=== PATIENT | female | born 1985 | race Caucasian/White ===

== ENCOUNTER 2016-09-09 07:50 | Inpatient (IN) | payer BC ==
[~2016-09-09] VITALS: Ht 165.1 cm; Wt 91.4 kg
[~2016-09-09 07:50] MED LIST: PRENTAB26 PO
[2016-09-09] MEDS ORDERED: LACTATED RINGER'S 1000ML 1,000 ML IV PRN (07:54)
[2016-09-09] MEDS ORDERED: LACTATED RINGER'S 1000ML 500 ML IV PRN ×2 (07:57→14:59)
[2016-09-09] MEDS ORDERED: OXYTOCIN 30 UNITS/500ML NSS IV PRN ×2 (08:00→18:45)
[2016-09-09 08:36] VITALS: Ht 165.1 cm; Wt 91.4 kg
[2016-09-09 08:39] LABS: HEMATOCRIT 35.7 % (37-47); MEAN CELL VOLUME 81.9 fL (80-100); MEAN CORPUSCULAR HEMOGLOBIN 26.4 pg (25-34); MEAN CORPUSCULAR HGB CONC 32.2 g/dl (32-36); MEAN PLATELET VOLUME 11.1 fL (7.4-10.4); PLATELET COUNT 164 K/uL (130-400); RED BLOOD COUNT 4.36 M/uL (4.2-5.4); WHITE BLOOD COUNT 6.41 K/uL (4.8-10.8)
[2016-09-09] MEDS: LACTATED RINGER'S 1000ML 1,000 ML IV SCH ×2 (08:56→14:21)
[2016-09-09] MEDS ORDERED: BUPIVACAINE 0.25% 30 ML VIAL ONE (13:56)
[2016-09-09] MEDS ORDERED: FENTANYL 2MCG/ML ROPIV 1.25MG/ML 100ML BAG EPI ONE (13:56)
[2016-09-09] MEDS ORDERED: EpHEDrine SULFATE INJ 50 MG/ML AMP ONE (13:56)
[2016-09-09] MEDS: FENTANYL CITRATE INJ 50 MCG/1 ML 2 ML VIAL ONE ×2 (14:20→15:04)
[2016-09-09] MEDS ORDERED: NALOXONE HCL INJ 1 MG in SODIUM CHLORIDE 0.9% 1000ML 1,000 ML IV PRN (14:59)
[2016-09-09] MEDS ORDERED: FENTANYL 2MCG/ML ROPIV 1.25MG/ML 100ML BAG EPI PRN (15:00)
[2016-09-09] MEDS ORDERED: ONDANSETRON INJ 2 MG/ML 2 ML VIAL IV PRN (15:00)
[2016-09-09] MEDS ORDERED: EpHEDrine SULFATE INJ 50 MG/ML AMP IV PRN (15:00)
[2016-09-09] MEDS ORDERED: NALOXONE HCL INJ 0.4 MG/1 ML VIAL/CARP IV PRN (15:00)
[2016-09-09] MEDS ORDERED: DiphenhydrAMINE HCL 50 MG/ML VIAL IV PRN (15:00)
[2016-09-09] MEDS ORDERED: NALBUPHINE HCL INJ 10 MG/ML AMP IV PRN (15:00)
[2016-09-09] MEDS ORDERED: HYDROCORTISONE ACETATE 25 MG SUPP PR PRN (18:45)
[2016-09-09] MEDS ORDERED: OXYCODONE/ACETAMINOPHEN 5-325 TAB PO PRN (18:45)
[2016-09-09] MEDS ORDERED: LANOLIN OINT EXT PRN ×2 (18:45)
[2016-09-09] MEDS ORDERED: BENZOCAINE 20% AER SPR 82.5 GM CAN EXT PRN (18:45)
[2016-09-09] MEDS ORDERED: SUPERCREAM 0.870 % 15GM JAR EXT PRN (18:45)
[2016-09-09] MEDS ORDERED: MEASLES, MUMPS & RUBELLA VIRUS VIAL SQ. ONE (18:45)
[2016-09-09] MEDS ORDERED: ACETAMINOPHEN 325 MG TAB PO PRN (18:45)
[2016-09-09] MEDS ORDERED: DIPHTHERIA/TETANUS/PERTUSSIS 0.5 ML SYR/VIAL IM. ONE (18:45)
--- NOTE | 2016-09-09 18:55 | Vaginal Delivery Summary ---
Vaginal Delivery Summary Patient was found to be fully dilated and desires to push. She pushed for about 15min and delivered the head and then shoulders with minimal traction at 1809 pm. The baby was handed off to the mother. The cord was clampedx2 and cut at 1 minute. The vagina and perineum were checked and found to have 2nd degree perineal laceration. Her perineum was very short, the distance between the posterior fourchette and anal opening was only 1 cm. Rectal exam was done and noted good sphincter tone. The gloves were changes. The external sphincter muscles were reinforced with figure of 8 sutures with 2/ 0 vicryl. The rectal exam was repeated and found good sphincter tone and no sutures were felt. The gloves were changed. The vaginal mucosa was repaired with 2/0 vicryl and skin on subcuticular fashion. The dyan was delivered spontaneously as intact and complete at 1822 pm. The uterus was explored and found to be empty. EBL was 200 ml. The fundus was firm The baby was a viable female , Apgars 9/9, the weight is pending The mother and the baby tolerated the procedure well. The sponge, instrument and needle count was correct. No complications happened and I was present during whole procedure.
--- NOTE | 2016-09-09 19:33 | Anesthesia Procedure Note ---
Anesthesia Epidural Removal Nt Date & Time Sep 09, 2016 at 19:33 Vital Signs Pain Intensity: 0.0 Notes Mental Status: alert / awake / arousable, participated in evaluation Nausea / Vomiting: adequately controlled Pain: adequately controlled Airway Patency, RR, SpO2: stable & adequate BP & HR: stable & adequate Hydration State: stable & adequate Neuraxial Anesthesia: was administered Anesthetic Complications: no major complications apparent, pt satisfied with anesthetic care Epidural: removed without complications, with tip intact
[2016-09-09 21:15] VITALS: BP 128/82; PULSE 84; TEMP 38.3; O2SAT 100
[2016-09-09] MEDS: DOCUSATE SODIUM 100 MG CAP PO SCH (21:30)
[2016-09-09] MEDS ORDERED: LIDOCAINE HCL 2% JELLY 30 ML TUBE EXT ONE (21:54)
[2016-09-09] MEDS ORDERED: BISACODYL 5 MG TABEC PO SCH (22:00)
[2016-09-09 22:12] LABS: BASO % 0.1 %; BASO ABS # 0.01 K/uL (0-0.2); COMPLETE YES; EOS % 0.2 %; HEMATOCRIT 31.8 % (37-47); IG% 0.3 %; LYMPH % 14.9 %; LYMPH ABS # 1.68 K/uL (1.2-3.4); MEAN CELL VOLUME 80.9 fL (80-100); MEAN CORPUSCULAR HEMOGLOBIN 26.7 pg (25-34); MEAN PLATELET VOLUME 10.5 fL (7.4-10.4); MONO % 7.5 %; PLATELET COUNT 156 K/uL (130-400); RED BLOOD COUNT 3.93 M/uL (4.2-5.4); WHITE BLOOD COUNT 11.29 K/uL (4.8-10.8)
[2016-09-09 23:35] VITALS: BP 118/77; PULSE 87; TEMP 37.2
[2016-09-09 23:47] LABS: URINE APPEARANCE CLEAR (CLEAR); URINE BILIRUBIN NEG (NEG); URINE COLOR YELLOW; URINE NITRITE NEG (NEG); URINE PH 6.5 (4.5-7.5); URINE SPECIFIC GRAVITY 1.008 (1.000-1.030); UROBILINOGEN NEG (NEG); ZZURINE CULT IF INDIC CATH NO
[2016-09-09 23:52] LABS: MANUAL MICROSCOPIC REQUIRED? NO; REVIEW REQ? NO
[2016-09-10 03:45] VITALS: BP 115/79; PULSE 64; TEMP 37.1
[2016-09-10] MEDS: IBUPROFEN 600 MG TAB PO PRN ×4 (05:18→21:27)
[2016-09-10 07:42] LABS: HEMATOCRIT 32.7 % (37-47)
[2016-09-10 08:01] VITALS: BP 118/77; PULSE 64; TEMP 36.7
[2016-09-10] MEDS: PRENATAL VITAMIN TAB PO SCH (08:23)
[2016-09-10] MEDS: FERROUS SULFATE 325 MG TAB PO SCH (08:23)
[2016-09-10] MEDS: DOCUSATE SODIUM 100 MG CAP PO SCH ×2 (08:23→19:57)
--- NOTE | 2016-09-10 08:42 | OB/GYN Progress Note ---
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 Subjective conversation w/ patient, physical exam Ambulation: ambulating normally Voiding: marcelino catheter in place Passing Gas: Yes Diet Tolerance: Regular Diet Lochia: Small Feeding Type: Breast Feeding Objective Vital Signs Date Time Temp Pulse Resp B/P (MAP) Pulse Ox O2 Delivery O2 Flow Rate FiO2 09/10/16 08:01 36.7 64 18 118/77 (91) Room Air 09/10/16 03:45 37.1 64 18 115/79 (91) Room Air 09/09/16 23:35 37.2 87 20 118/77 (91) Room Air 09/09/16 23:35 Room Air 09/09/16 21:15 38.3 84 18 128/82 (97) 100 Room Air 09/09/16 21:15 100 Room Air Physical Exam General Appearance: WELL-APPEARING, NO APPARENT DISTRESS Abdomen: non tender, soft Fundus: Firm Extremities: non-tender, normal inspection, no pedal edema Laboratory Results Last 24 Hours Test 09/09/16 22:05 09/09/16 22:45 09/10/16 06:57 White Blood Count 11.29 K/uL Red Blood Count 3.93 M/uL Hemoglobin 10.5 g/dL 10.7 g/dL Hematocrit 31.8 % 32.7 % Mean Corpuscular Volume 80.9 fL Mean Corpuscular Hemoglobin 26.7 pg Mean Corpuscular Hemoglobin Concent 33.0 g/dl Platelet Count 156 K/uL Mean Platelet Volume 10.5 fL Neutrophils (%) (Auto) 77.0 % Lymphocytes (%) (Auto) 14.9 % Monocytes (%) (Auto) 7.5 % Eosinophils (%) (Auto) 0.2 % Basophils (%) (Auto) 0.1 % Neutrophils # (Auto) 8.70 K/uL Lymphocytes # (Auto) 1.68 K/uL Monocytes # (Auto) 0.85 K/uL Eosinophils # (Auto) 0.02 K/uL Basophils # (Auto) 0.01 K/uL RDW Standard Deviation 41.1 fL RDW Coefficient of Variation 13.8 % Immature Granulocyte % (Auto) 0.3 % Immature Granulocyte # (Auto) 0.03 K/uL Urine Color YELLOW Urine Appearance CLEAR Urine pH 6.5 Urine Specific [place] 1.008 Urine Protein NEG Urine Glucose (UA) NEG Urine Ketones 1+ Urine Occult Blood NEG Urine Nitrite NEG Urine Bilirubin NEG Urine Urobilinogen NEG Urine Leukocyte Esterase NEG Assessment and Plan Post- Day Number: 1 Continue Routine Care: d/c Marcelino at noon tent d/c in AM
[2016-09-10 12:00] VITALS: BP 111/74; PULSE 65; TEMP 36.6
[2016-09-10 15:49] VITALS: BP 124/83; PULSE 66; TEMP 36.5
[2016-09-10] MEDS ORDERED: BISACODYL 5 MG TABEC PO SCH (20:00)
[2016-09-11 02:00] VITALS: BP 123/85; PULSE 81; TEMP 36.3
[2016-09-11 07:23] VITALS: BP 115/80; PULSE 72; TEMP 37; O2SAT 97
[2016-09-11 07:23] LABS: HEMATOCRIT 36.7 % (37-47); MEAN CORPUSCULAR HGB CONC 31.3 g/dl (32-36); MEAN PLATELET VOLUME 11.4 fL (7.4-10.4); PLATELET COUNT 181 K/uL (130-400); RED BLOOD COUNT 4.42 M/uL (4.2-5.4); WHITE BLOOD COUNT 8.99 K/uL (4.8-10.8)
[2016-09-11] MEDS: FERROUS SULFATE 325 MG TAB PO SCH (07:52)
[2016-09-11] MEDS: DOCUSATE SODIUM 100 MG CAP PO SCH (07:52)
[2016-09-11] MEDS: IBUPROFEN 600 MG TAB PO PRN (07:52)
[2016-09-11] MEDS: PRENATAL VITAMIN TAB PO SCH (07:52)
[2016-09-11 07:55] VITALS: O2SAT 97
--- NOTE | 2016-09-11 09:37 | OB/GYN Progress Note ---
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 Subjective conversation w/ patient, physical exam Ambulation: ambulating normally Voiding: no voiding problems Passing Gas: Yes Diet Tolerance: Regular Diet Lochia: Small Feeding Type: Breast Feeding Pain: 2/10 Notes: Doing well, no concerns. Pain well controlled. Tolerating regular diet. Ambulating without difficulty. Lochia minimal. Would like to go home today. Objective Vital Signs Date Time Temp Pulse Resp B/P (MAP) Pulse Ox O2 Delivery O2 Flow Rate FiO2 09/11/16 07:55 97 Room Air 09/11/16 07:23 37.0 72 18 115/80 (92) 97 Room Air 09/11/16 02:00 36.3 81 18 123/85 (98) Room Air 09/11/16 02:00 Room Air 09/10/16 16:35 Room Air 09/10/16 15:49 36.5 66 18 124/83 (97) Room Air 09/10/16 12:00 36.6 65 18 111/74 (86) Room Air Physical Exam General Appearance: WELL-APPEARING Respiratory/Chest: chest non-tender, lungs clear Cardiovascular: regular rate, rhythm Abdomen: normal bowel sounds, soft Fundus: Firm Extremities: normal range of motion, non-tender, no calf tenderness Laboratory Results Last 24 Hours Test 09/11/16 06:56 White Blood Count 8.99 K/uL Red Blood Count 4.42 M/uL Hemoglobin 11.5 g/dL Hematocrit 36.7 % Mean Corpuscular Volume 83.0 fL Mean Corpuscular Hemoglobin 26.0 pg Mean Corpuscular Hemoglobin Concent 31.3 g/dl RDW Standard Deviation 43.7 fL RDW Coefficient of Variation 14.3 % Platelet Count 181 K/uL Mean Platelet Volume 11.4 fL Assessment and Plan Post- Day Number: 2 Continue Routine Care: -D/C home today -F/u in 6 weeks.
[2016-09-11] MEDS ORDERED: MTR600X PO (09:38)
--- NOTE | 2016-09-11 09:39 | Discharge Instructions ---
Discharge Instructions Date of Service Sep 11, 2016. Admission Reason for Admission: Induction Discharge Discharge Diagnosis / Problem: Vaginal Delivery Discharge Goals Goal(s): Routine recovery after delivery Medications Continue Dispensed Medications: supercream, dermaplast, tucks, lansinoh Activity Recommendations Activity Limitations: per Instructions/Follow-up section . Instructions / Follow-Up Instructions / Follow-Up ACTIVITY RECOMMENDATIONS: * Gradual return to full activity over the next 2-3 weeks. * No lifting - nothing heavier than baby over the next 2-3 weeks. * Do not engage in vigorous exercise, sexual activity or sports until cleared by your physician. * Do not drive or operate any motorized equipment until cleared by your physician. * You may shower/bathe daily. BREAST CARE: If you are not breast feeding: * Wear a supportive bra 24 hours a day for one to two weeks. * Avoid stimulating your breasts and nipples as much as possible during the first few weeks after delivery. * When taking a shower, have the warm water hit your back, not breasts. * When your breasts feel full, apply ice packs. Usually three to four times a day helps ease the discomfort. * Take a mild pain medication (Tylenol/Motrin) when you are uncomfortable. If breast feeding: * Use breast milk to lubricate nipples. Lansinoh cream may be used for sore nipples. You do not need to remove cream prior to breast feeding. If using a different brand of cream, check the label for directions regarding removal of cream prior to nursing. * Wear a supportive bra. * If having problems with breasts or breast feeding, call a rural health consultant or your health care provider. EPISIOTOMY CARE: After delivery, if you have an episiotomy (stitches), the following steps will ease discomfort and aid healing. * For the first 24 hours after delivery, place ice packs next to your episiotomy to help reduce swelling. * After the first 24 hour-period, sitz baths, either portable or in the tub, are suggested. A shower with a shower arm sprayed over the episiotomy may be comforting. * Jennie care should be done after each voiding and bowel movement. Squirt warm water from a plastic bottle over the perineum (region of the body between the anus and urinary opening) and pat dry. * Use Dermoplast to ease discomfort. Shake container. Desmet directly over the episiotomy. * Place a Tucks on a clean sanitary pad next to your episiotomy. OVER THE COUNTER MEDICATION: * For discomfort or pain, you may use Acetaminophen (Tylenol), Ibuprofen (Advil ), or Naproxen (Aleve) following the package directions. * For constipation you may use Colace following the package directions. SPECIAL CARE INSTRUCTIONS: When you are discharged from the hospital, it is important for you to follow the instructions listed below: * During the first week at home, you should be able to care for yourself and your baby. In addition, the usual light household activities are encouraged. * Limit your activities to the way you feel. Do not try to clean the house or move furniture. Be sensible. * If you actively engage in sports and have done so up until the time of your delivery, you may resume these activities as soon as you feel able. This may take up to one month or even longer. Use good judgment. * Continue to take your vitamins for at least six weeks after the of your baby. * Your diet need not be limited unless you were on a special diet before your delivery. Breast-feeding mothers need around 2500 calories per day and at least 64-80 ounces of fluid per day (8 to 10 glasses). * You should eat foods from the four major food groups. Crash diets or fad diets are to be avoided. Eating lean meats, fresh fruits and vegetables, low-fat dairy products, high fiber foods and a regular exercise program, will help you get back to your pre- weight without putting your health at risk. * Constipation is sometimes a problem after delivery. Take a mild laxative as needed. If breast feeding, Milk of Magnesia is acceptable to use. You may use a suppository or Fleets enema if no episiotomy. * A daily shower or tub bath is suggested. Be sure to thoroughly and gently dry the perineum. * A bloody vaginal discharge will usually continue until around four weeks post . A small amount of bleeding may continue for as long as six weeks. Vaginal discharge changes from the bright red bleeding after delivery to pink then brownish and finally yellowish-pink before becoming white and disappearing. * Bleeding may increase with activity. Your first period may come in 4-8 weeks. If you are breast feeding, your period may be delayed even longer. * Banks (sex) can begin whenever both you and your partner feel comfortable and do not have any form of genital infection. It is recommended that you wait until after your return appointment and discuss with your physician. If you have questions, please talk to your health care practitioner. A condom should be used to prevent infection and . * Foreplay, gentle intercourse and lubrication is very important the first several times to prevent pain. A water-based lubricant such as K-Y jelly or Astroglide may be used. * Tampons may be used six weeks after delivery. * Douching should be avoided for 6 weeks after delivery. * If you have RH negative blood and your baby is RH positive, you will receive RHOGAM by injection prior to discharge. The nurse will give you a card to keep with you that has the date and place that you received RHOGAM after delivery. * During your care, you had a Rubella screen done to check for the presence of rubella antibodies in your blood. If your test was negative, you will receive a Rubella vaccine prior to discharge. This vaccine may cause a fever, soreness at the injection site and flu-like symptoms. If these symptoms persist, notify your health care practitioner. is not advised for three months after a Rubella vaccine. There is a higher chance of having a baby with defects if conceived within three months of getting the vaccine. * If you were discharged 24 hours from delivery or before 48 hours: Visiting nurses will come to your home 48 hours after discharge to assess you and your baby. The visiting nurse will meet with you while you are in the hospital to arrange a time and get directions to your home. * Verbalizes understanding of car seat law as reviewed with patient nursing. * Car Seat hand-out given and reviewed with patient by nursing. * Shaken baby information reviewed with patient by nursing. Call you doctor if: * Heavy bleeding (saturating several pads an hour) or passing clots the size of your fist. * A fever >101 degrees F (38.3 degrees C) on two occasions four hours apart and/or chills. * Unusual pain in the pelvic or vaginal areas. * "Baby Blues" lasting longer than two weeks. If you have any questions or concerns, call your health care practitioner at . FOLLOW-UP VISIT: * Please call the office at to schedule a 6 week examination. It is important you keep this appointment. * It is important for you to make arrangements for either yearly or twice yearly check-ups thereafter. Current Hospital Diet Patient's current hospital diet: Regular OB Diet Discharge Diet Recommended Diet: Regular OB Diet Pending Studies Studies pending at discharge: no Medical Emergencies . Who to Call and When: Medical Emergencies: If at any time you feel your situation is an emergency, please call 911 immediately. . Non-Emergent Contact Non-Emergency issues call your: Primary Care Provider, Adhesive Bandage Machine Operator . . "Provider Documentation" section prepared by Josiah Desai. . VTE Core Measure Inpt VTE Proph given/why not?: Treatment not indicated
[2016-09-11 10:59] VITALS: BP_DIAS 80; PULSE 72; TEMP 37
== END 2016-09-11 11:10 | disposition home or self-care (01) | DRG 775 ==
LOC: C.LD 07:50 → C.OBG 20:42
PROVIDERS: ADMIT Obstetrics & Gynecology; ATTEND Obstetrics & Gynecology
PROC: 10E0XZZ Delivery of Products of Conception, External Approach (ICD-10-PCS; principal; 2016-09-09)
PROC: 0KQM0ZZ Repair Perineum Muscle, Open Approach (ICD-10-PCS; principal; 2016-09-09)
DX: O48.0 Post-term pregnancy (principal); O70.1 Second degree perineal laceration during delivery; O75.89 Other specified complications of labor and delivery; N90.89 Other specified noninflammatory disorders of vulva and perineum; Z37.0 Single live birth; Z3A.40 40 weeks gestation of pregnancy

== ENCOUNTER 2016-10-21 18:16 | Emergency (ER) | payer BC ==
[~2016-10-21] VITALS: Ht 165.1 cm; Wt 79.0 kg
[~2016-10-21 18:16] MED LIST changes: +MTR600X PO
[2016-10-21 18:22] VITALS: TEMP 36.7; Ht 165.1 cm; Wt 79.0 kg
[2016-10-21] MEDS ORDERED: KETOROLAC TROMETHAMINE 30 MG/ML VIAL IV STA (18:49)
[2016-10-21] MEDS ORDERED: SODIUM CHLORIDE 0.9% 1000ML 1,000 ML IV STA (18:49)
[2016-10-21 19:43] LABS: BASO % 0.1 %; BASO ABS # 0.01 K/uL (0-0.2); COMPLETE YES; EOS % 2.9 %; HEMATOCRIT 36.9 % (37-47); IG% 0.3 %; LYMPH % 27.2 %; LYMPH ABS # 1.95 K/uL (1.2-3.4); MEAN CELL VOLUME 82.6 fL (80-100); MEAN CORPUSCULAR HEMOGLOBIN 26.8 pg (25-34); MEAN CORPUSCULAR HGB CONC 32.5 g/dl (32-36); MEAN PLATELET VOLUME 10.7 fL (7.4-10.4); MONO % 9.6 %; NEUT % 59.9 %; PLATELET COUNT 196 K/uL (130-400); RED BLOOD COUNT 4.47 M/uL (4.2-5.4); WHITE BLOOD COUNT 7.17 K/uL (4.8-10.8)
[2016-10-21 19:53] VITALS: O2SAT 98
--- NOTE | 2016-10-21 20:05 | EMERGENCY ROOM VISIT NOTE ---
History First contact with patient: 18:29 Chief Complaint: PELVIC PAIN Stated Complaint: PELVIC PAIN, 6 WEEKS , HARD TO WALK History of Present Illness The patient is a 31 year old female who presents to the Emergency Room with complaints of bilateral pelvic and hip pain for the past week that got progressively worse over the past 2 days. Patient is , had a vaginal delivery 6 weeks ago that was uncomplicated. Patient states she had similar pelvic pain through most of her that her OB thought was ligament pain , this seemed to resolve after she gave , but has come back and gotten much worse over the past few days. She states the pain is aggravated most with walking and standing up from sitting, or any lifting of her legs. She has taken Tylenol and ibuprofen for the pain without much improvement. She denies any fevers, chills, chest pain, shortness of breath, dizziness or syncope, abdominal pain, back pain, weakness or numbness in the legs, diarrhea or constipation, vaginal bleeding or abnormal discharge, dysuria or urinary frequency, or rash. She has been breast-feeding. Review of Systems A complete 10 point review of systems was reviewed with the patient with pertinent positives and negatives as per history of present illness. All else were negative. Past Medical/Surgical History Medical Problems: (1) Post-term , 40-42 weeks of gestation Social History Smoking Status: Never Smoker Current/Historical Medications Scheduled Multivit/Min/Iron/Fol Ac/Pren ( Vitamin), 1 TAB PO DAILY Scheduled PRN Ibuprofen (Ibuprofen), 600 MG PO Q4H PRN for PAIN, LEAVITT, CRAMPING OR FEVER Physical Exam Vital Signs Date Time Temp Pulse Resp B/P (MAP) Pulse Ox O2 Delivery O2 Flow Rate FiO2 10/21/16 22:28 56 18 115/68 99 10/21/16 20:38 70 18 134/82 100 Room Air 10/21/16 19:53 66 18 130/73 98 Room Air 10/21/16 19:53 98 Room Air 10/21/16 18:22 36.7 72 18 126/85 98 Room Air Physical Exam CONSTITUTIONAL: No acute distress. Well appearing and well nourished. Alert and oriented X 4 with normal affect. HEENT: Normocephalic, atraumatic. Pupils equal, round and reactive to light, EOMI. TMs normal. Pharynx normal. NECK: Supple, full active range of motion without discomfort. RESPIRATORY: Clear to auscultation bilaterally with no wheezing, crackles, rhonchi or stridor. Equal expansion bilaterally. CARDIOVASCULAR: Regular rate and rhythm with no murmurs, rubs or gallops. Normal peripheral perfusion. No edema. GASTROINTESTINAL: Soft, nontender, nondistended. Bowel sounds present in all quadrants. GENITOURINARY: Pelvic exam reveals a normal-appearing cervix with no evidence of cervicitis, no cervical motion tenderness, no pelvic fullness or adnexal tenderness. Small brownish and clear discharge noted. Cervical os is closed. MUSCULOSKELETAL: Full range of motion of all joints without discomfort. INTEGUMENTARY: No rash or other significant dermatologic conditions noted. NEUROLOGIC: Cranial nerves II-XII grossly intact. No focal neurologic deficits noted. Medical Decision & Procedures ER Provider Diagnostic Interpretation: [~ rep ct add3]] PELVIS 1 OR 2 VIEW ROUTINE HISTORY: 31 years-old Female acute bilateral hip/pelvis bone pain COMPARISON: None available TECHNIQUE: AP view of the pelvis FINDINGS: Surgical clips are noted within the region of the right mid pelvis. There is mild sclerosis involving the iliac portions of the bilateral sacroiliac joints. No erosive changes are identified. There is no acute fracture or dislocation of the pelvis or imaged femora. No significant degenerative changes. There is mild sclerosis at the pubic symphysis. IMPRESSION: 1. No acute fracture or dislocation. 2. 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 Laboratory Results 10/21/16 19:34 Red Blood Count 4.47, Mean Corpuscular Volume 82.6, Mean Corpuscular Hemoglobin 26.8, Mean Corpuscular Hemoglobin Concent 32.5, Mean Platelet Volume 10.7, Neutrophils (%) (Auto) 59.9, Lymphocytes (%) (Auto) 27.2, Monocytes (%) (Auto) 9.6, Eosinophils (%) (Auto) 2.9, Basophils (%) (Auto) 0.1, Neutrophils # (Auto) 4.29, Lymphocytes # (Auto) 1.95, Monocytes # (Auto) 0.69, Eosinophils # (Auto) 0.21, Basophils # (Auto) 0.01 10/21/16 19:34 Test 10/21/16 19:34 10/21/16 20:33 10/21/16 20:57 White Blood Count 7.17 K/uL (4.8-10.8) Red Blood Count 4.47 M/uL (4.2-5.4) Hemoglobin 12.0 g/dL (12.0-16.0) Hematocrit 36.9 % (37-47) Mean Corpuscular Volume 82.6 fL (80-100) Mean Corpuscular Hemoglobin 26.8 pg (25-34) Mean Corpuscular Hemoglobin Concent 32.5 g/dl (32-36) Platelet Count 196 K/uL (130-400) Mean Platelet Volume 10.7 fL (7.4-10.4) Neutrophils (%) (Auto) 59.9 % Lymphocytes (%) (Auto) 27.2 % Monocytes (%) (Auto) 9.6 % Eosinophils (%) (Auto) 2.9 % Basophils (%) (Auto) 0.1 % Neutrophils # (Auto) 4.29 K/uL (1.4-6.5) Lymphocytes # (Auto) 1.95 K/uL (1.2-3.4) Monocytes # (Auto) 0.69 K/uL (0.11-0.59) Eosinophils # (Auto) 0.21 K/uL (0-0.5) Basophils # (Auto) 0.01 K/uL (0-0.2) RDW Standard Deviation 49.9 fL (36.4-46.3) RDW Coefficient of Variation 16.3 % (11.5-14.5) Immature Granulocyte % (Auto) 0.3 % Immature Granulocyte # (Auto) 0.02 K/uL (0.00-0.02) Anion Gap 6.0 mmol/L (3-11) Est Creatinine Clear Calc Drug Dose 111.9 ml/min Estimated GFR () 122.2 Estimated GFR (Non- 105.5 BUN/Creatinine Ratio 14.3 (10-20) Calcium Level 8.9 mg/dl (8.5-10.1) Total Bilirubin 0.4 mg/dl (0.2-1) Aspartate Amino Transf (AST/SGOT) 19 U/L (15-37) Alanine Aminotransferase (ALT/SGPT) 37 U/L (12-78) Alkaline Phosphatase 81 U/L (45-117) Total Protein 7.2 gm/dl (6.4-8.2) Albumin 3.8 gm/dl (3.4-5.0) Globulin 3.4 gm/dl (2.5-4.0) Albumin/Globulin Ratio 1.1 (0.9-2) Chemistry Specimen Hemolysis Urine Color DK YELLOW Urine Appearance CLEAR (CLEAR) Urine pH 6.0 (4.5-7.5) Urine Specific [place] 1.033 (1.000-1.030) Urine Protein NEG (NEG) Urine Glucose (UA) NEG (NEG) Urine Ketones TRACE (NEG) Urine Occult Blood TRACE (NEG) Urine Nitrite NEG (NEG) Urine Bilirubin NEG (NEG) Urine Urobilinogen NEG (NEG) Urine Leukocyte Esterase NEG (NEG) Urine WBC (Auto) 1-5 /hpf (0-5) Urine RBC (Auto) 0-4 /hpf (0-4) Urine Hyaline Casts (Auto) 1-5 /lpf (0-5) Urine Epithelial Cells (Auto) >30 /lpf (0-5) Urine Bacteria (Auto) NEG (NEG) Urine Test NEG (NEG) Medications Administered Medications (Trade) Dose Ordered Sig/Christopher Route Start Time Stop Time Status Last Admin Dose Admin Ketorolac Tromethamine (Toradol Inj) 15 mg NOW STAT IV 10/21/16 18:49 10/21/16 18:55 DC 10/21/16 19:41 15 MG Sodium Chloride 1,000 ml @ 999 mls/hr Q1H1M STAT IV 10/21/16 18:49 10/21/16 19:49 DC 10/21/16 19:42 999 MLS/HR Medical Decision CC: Patient presenting with complaint of bilateral hip/pelvic pain Interpretation of Labs: No leukocytosis, no anemia, no significant electrolyte abnormalities, normal renal function, normal liver enzymes. No UTI, not . Differential Diagnosis: Includes, but not limited to infection, ovarian pathology, PID, musculoskeletal pain, round ligament pain, hip arthralgias, among others. Medication Reconciliation: I attest that I have personally reviewed the patient' s current medication list. Vital signs review: I reviewed the patient's vital signs and interpret them as follows: T: Afebrile; BP: Normotensive; HR: Within normal limits; RR: Within normal limits; Pulse Ox: Within normal limits on room air. Blood pressure screening: The patient was found to have normal blood pressure on screening and does not require follow-up for repeat blood pressure check. Summary: Patient was evaluated at bedside, history of physical exam performed. Patient is alert and in no acute distress, nontoxic appearing, resting calmly in the stretcher. Patient does have a lateral hip pain with flexion and internal rotation of the hips, reports right greater than left. The abdomen is soft, completely nontender, nondistended and with normal bowel sounds. Pelvic exam is unremarkable, no cervical motion tenderness or cervicitis, no tenderness on exam suggest PID, ovarian or uterine infection. Labs reviewed as above, no acute abnormalities. Pelvic x-ray was reviewed, showing mild sclerosis of the bilateral SI joints, which suggests osteitis condensans ilii, which likely accounts for patient's pain. Patient discussed with Dr. Rachel, who agrees with my assessment and plan. I spoke with Dr. Desai, OB, and related patient's exam and findings to him. He agrees with workup and plan for discharge. Patient does have a follow-up appointment with her OB tomorrow, which I did encourage her to keep. Patient reassessed multiple times throughout ED stay, she reports improved pain after IV Toradol. Patient was updated on all results and plan for discharge, she was also given return precautions should her symptoms worsen, she verbalized understanding. Patient was discharged home in stable condition and ambulatory. Impression Primary Impression: Pain of both sacroiliac joints Departure Information Dispostion Home / Self-Care Condition GOOD Referrals No Doctor, Assigned (PCP) Patient Instructions ED Pelvic Pain Preg [facility] 2 or 3 Tri, ED Pelvic Pain [facility], My [facility] Additional Instructions You have been treated in the Emergency Department your hip/pelvic Pain. Laboratory results and imaging studies have ruled out any emergent causes for your abdominal pain which would warrant admission or surgery. 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 For pain control, you can use the following [id number] medicines (if >12 yo): -Extra strength (500 mg/tab) Tylenol (acetaminophen) 2 tabs every 8 hours as needed. Do not exceed 6 tablets in a 24 hour period. Avoid taking more than 4 grams (4000 mg) of Tylenol per day. This includes any other sources of acetaminophen you may take on a regular basis. - Regular strength (200 mg/tab) Advil (ibuprofen) 3-4 tabs every 8 hours as needed. Do not exceed a dose of 3200 mg per day. Drink plenty of water and stay well hydrated. Keep your scheduled appointment tomorrow with your OB for follow-up. You may benefit from physical therapy for your pain, you can discuss this with your provider. Return to the emergency department if your symptoms persist despite treatment plan outlined above or if the following symptoms occur: Severe worsening pain, fevers or chills, severe nausea/vomiting, blood in your stool or urine, or any other concerns.
[2016-10-21 20:06] LABS: ALB/GLOB RATIO 1.1 (0.9-2); BUN/CREATININE RATIO 14.3 (10-20); CALCIUM 8.9 mg/dl (8.5-10.1); CREATININE 0.75 mg/dl (0.60-1.20); POTASSIUM 4.1 mmol/L (3.5-5.1)
--- NOTE | 2016-10-21 20:25 | DIAGNOSTIC IMAGING REPORT ---
PELVIS 1 OR 2 VIEW ROUTINE HISTORY: 31 years-old Female acute bilateral hip/pelvis bone pain COMPARISON: None available TECHNIQUE: AP view of the pelvis FINDINGS: Surgical clips are noted within the region of the right mid pelvis. There is mild sclerosis involving the iliac portions of the bilateral sacroiliac joints. No erosive changes are identified. There is no acute fracture or dislocation of the pelvis or imaged femora. No significant degenerative changes. There is mild sclerosis at the pubic symphysis. IMPRESSION: 1. No acute fracture or dislocation. 2. 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 The above report was generated using voice recognition software. It may contain grammatical, syntax or spelling errors. Electronically signed by: Lobo Lane M.D. 10/21/2016 8:23 PM Dictated Date/Time: 10/21/2016 8:21 PM
[2016-10-21 20:57] LABS: MANUAL MICROSCOPIC REQUIRED? NO; REVIEW REQ? NO; URINE APPEARANCE CLEAR (CLEAR); URINE BILIRUBIN NEG (NEG); URINE COLOR DK YELLOW; URINE EPITHELIAL CELL AUTO >30 /lpf (0-5); URINE NITRITE NEG (NEG); URINE SPECIFIC GRAVITY 1.033 (1.000-1.030); UROBILINOGEN NEG (NEG)
[2016-10-21 22:28] VITALS: BP 115/68; PULSE 56; O2SAT 99
[2016-10-25 00:57] LABS: CHLAMYDIA TRACH RNA*** NOT DETECTED (NOT DETECTED); GC (NEIS GONORRHOEAE)RNA** NOT DETECTED (NOT DETECTED); TRICHOMONAS VAGINALIS RNA** NOT DETECTED (NOT DETECTED)
== END 2016-10-21 22:28 | disposition home or self-care (01) ==
LOC: C.EDB 18:18
DX: M53.3 Sacrococcygeal disorders, not elsewhere classified (principal)

== ENCOUNTER 2018-10-18 17:48 | Inpatient (IN) ==
--- OUTSIDE RECORDS SUMMARY | 2018-10-18 17:51 | External Medical Summary | Continuity of Care Document ---
:1985 Author Name Juan Carlos hCavez, Provider Address Unavailable Unavailable , Care Team Providers Name Role Phone Unavailable Unavailable Unavailable Angel Chavez, [email or web address] ALISE HIRSCH III Unavailable Unavailable Unavailable Unavailable Unavailable Problems Hand dermatitis (692.9) (L30.9) complication (674.94) (O90.89) Encounter for visit (V24.2) (Z39.2) Allergies and Adverse Reactions No Known Drug Allergies (Allergy) Medications Multi Vitamin/Minerals Oral Tablet , M.D. Refills: 0 Triamcinolone Acetonide 0.1 % External O intment; APPLY SPARINGLY TO AFFECTED AREA(S) TWICE DAILY Scott Ortiz Start: 26-Dec-2013 Quantity: 1 80 GM Tube Refills: 2 Procedures History of Appendectomy Status: Complete d History of Knee Arthroscopy (Therapeutic) Status: Completed History of Oral Surgery Tooth Extraction Status: Completed History of Patient Education Status: Com pleted History of Encounter for initial prescription of contracepti ves Status: Completed Immunizations Immunizations not documented Family History Father Family history of Hypertension (V17.49) Status: Active Social History - Smoking Status Never smoker Plan of Treatment Planned Observations Planned Goals not documented Results No Known Results Results not documented
[2018-10-18] MEDS ORDERED: SODIUM CHLORIDE 0.9% 1000ML 2,000 ML IV ONE (18:16)
[2018-10-18] MEDS ORDERED: ALBUTEROL 0.083% NEBU SOLN 3 ML VIAL NEB STA (18:16)
[2018-10-18] MEDS ORDERED: ACETAMINOPHEN 500 MG TAB PO STA (18:16)
--- NOTE | 2018-10-18 18:40 | Emergency Department Note ---
History of Present Illness General Chief complaint: Illness Stated complaint: COUGH,FEVER History of Present Illness This patient is a 33-year-old female presents to the emergency department via private vehicle for evaluation of a cough and fever that she has had for about 1 week. The patient's symptoms started with severe body aches. She developed a nonproductive cough the day after. It has gotten progressively worse. The patient has been taking ibuprofen 600 mg every 6 hours with minimal relief of her symptoms. The patient saw her primary care physician. She was prescribed Augmentin which she has been taking for the last several days with no improvement. She is up-to-date on vaccinations. 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: No Beliefs That Will Affect Care: None Current Living Situation: Family Other Information That Helps Us Care for You: No Feels Safe at Home: Yes Safety Concerns: Feels Safe At This Time Smoking Status: Never smoker Hx Alcohol Use: Yes Alcohol type: wine Hx Substance Use: No Review of Systems A total of 10 systems reviewed and were otherwise negative Physical Exam Vital Signs Vital Signs - 24 hr 10/18/18 17:59 10/18/18 18:20 10/18/18 18:30 Temperature 39.2 C H Temperature Source Oral Sepsis Recent Fever Within 48 Hours Yes Sepsis Action Taken by Nursing No Action Required Pulse Rate 98 H 127 H 84 Pulse Rate [Right Apical] Pulse Rate from SpO2 Sensor 127 H 85 Pulse Rhythm Regular Pulse Strength Normal Respiratory Rate 16 19 16 Respiratory Effort / Characteristics Non-Labored Respiratory Depth Normal Respiratory Pattern Regular Blood Pressure 149/90 H Blood Pressure Mean 109 Blood Pressure Position Sitting Pulse Oximetry 98 96 99 Oxygen Delivery Method Room Air 10/18/18 18:38 10/18/18 19:00 10/18/18 19:10 Temperature Temperature Source Sepsis Recent Fever Within 48 Hours Sepsis Action Taken by Nursing Pulse Rate 104 H 109 H Pulse Rate [Right Apical] 98 H Pulse Rate from SpO2 Sensor 112 H 110 H Pulse Rhythm Pulse Strength Respiratory Rate 18 19 29 H Respiratory Effort / Characteristics Non-Labored Spontaneous Respiratory Depth Respiratory Pattern Blood Pressure 121/67 Blood Pressure Mean 85 Blood Pressure Position Pulse Oximetry 98 93 96 Oxygen Delivery Method Room Air 10/18/18 19:30 10/18/18 20:49 Temperature 37.4 C Temperature Source Oral Sepsis Recent Fever Within 48 Hours Sepsis Action Taken by Nursing Pulse Rate 107 H Pulse Rate [Right Apical] Pulse Rate from SpO2 Sensor 107 H Pulse Rhythm Pulse Strength Respiratory Rate 30 H Respiratory Effort / Characteristics Respiratory Depth Respiratory Pattern Blood Pressure 120/92 Blood Pressure Mean 101 Blood Pressure Position Pulse Oximetry 97 Oxygen Delivery Method Constitutional Mildly acutely ill in appearance Eyes EOM intact bilaterally ENMT external ear and nose normal, oropharynx normal (Oral mucosa slightly dry) Neck trachea midline Respiratory Decreased breath sounds bilaterally. Cardiovascular RRR, no murmur, no edema Gastrointestinal (Abdomen) normal bowel sounds, soft, nontender, no hepatosplenomegaly Musculoskeletal no cyanosis or clubbing, extremities motor strength 5/5 Skin no rashes, warm and dry Neurologic Alert and oriented x3. No focal motor deficits. Psychiatric Acting appropriately Course Patient was seen and examined Vital signs including blood pressure were reviewed medications list was verified with patient Labs were obtained, and a saline lock was established The patient was ordered an albuterol treatment. She was also ordered 2 L of normal saline and Tylenol. Imaging was performed and reviewed Upon reevaluation, the patient was feeling slightly better. We discussed her results. She voiced understanding, and was in agreement with possible admission. The case was discussed with my supervising physician, [facility] evaluate the patient for possible inpatient management. The patient was given 1 dose of Rocephin and azithromycin. Consultations [facility] Medications Discontinued Medications Acetaminophen (Tylenol) 1,000 mg PO NOW STA Stop: 10/18/18 18:17 Last Admin: 10/18/18 18:39 Dose: 1,000 mg Documented by: [id number] Acetaminophen (Tylenol) 650 mg PO Q4H PRN PRN Reason: pain/fever Stop: 11/17/18 23:18 Last Admin: 10/19/18 16:21 Dose: 650 mg Documented by: [id number] Admin: 10/19/18 08:40 Dose: 650 mg Documented by: [id number] Admin: 10/19/18 03:56 Dose: 650 mg Documented by: [id number] Albuterol (Ventolin 0.083% 2.5mg/3ml) 2.5 mg NEB NOW STA Stop: 10/18/18 18:17 Last Admin: 10/18/18 18:38 Dose: 2.5 mg Documented by: [id number] Enoxaparin Sodium (Lovenox) 40 mg SQ QAM NAVEEN Stop: 11/18/18 08:59 Last Admin: 10/20/18 09:34 Dose: 40 mg Documented by: [id number] Admin: 10/19/18 08:42 Dose: 40 mg Documented by: [id number] Guaifenesin (Mucinex) 600 mg PO Q12 NAVEEN Stop: 11/17/18 23:18 Last Admin: 10/20/18 09:35 Dose: 600 mg Documented by: [id number] Admin: 10/19/18 20:13 Dose: 600 mg Documented by: [id number] Admin: 10/19/18 08:41 Dose: 600 mg Documented by: [id number] Admin: 10/19/18 01:02 Dose: 600 mg Documented by: [id number] Sodium Chloride (Nss 1000ml) 2,000 mls @ 999 mls/hr IV .Q2H1M ONE Stop: 10/18/18 20:16 Last Infusion: 10/18/18 21:21 Dose: 0 mls/hr Documented by: [id number] Admin: 10/18/18 19:07 Dose: 999 mls/hr Documented by: [id number] Levofloxacin/Dextrose (Levaquin/D5w) 750 mg in 150 mls @ 100 mls/hr IV ONE ONE Stop: 10/18/18 22:28 Last Infusion: 10/18/18 23:27 Dose: 0 mls/hr Documented by: [id number] Admin: 10/18/18 21:57 Dose: 100 mls/hr Documented by: [id number] Ceftriaxone Sodium (Rocephin) 2,000 mg in 70 mls @ 140 mls/hr IV NOW STA Stop: 10/18/18 21:35 Last Infusion: 10/18/18 21:59 Dose: 0 mls/hr Documented by: [id number] Admin: 10/18/18 21:21 Dose: 140 mls/hr Documented by: [id number] Lactated Ringer's (Lr) 1,000 mls @ 80 mls/hr IV .[id number] ONE Stop: 10/19/18 11:48 Last Infusion: 10/19/18 12:55 Dose: 0 mls/hr Documented by: [id number] Admin: 10/19/18 00:25 Dose: 80 mls/hr Documented by: [id number] Ibuprofen (Motrin) 600 mg PO Q8H PRN PRN Reason: pain or fever or headache Stop: 11/17/18 23:18 Last Admin: 10/19/18 17:20 Dose: 600 mg Documented by: [id number] Ipratropium [place] (Atrovent 0.02% 0.5mg/2.5ml) 0.5 mg INH NOW STA Stop: 10/18/18 21:44 Last Admin: 10/18/18 21:50 Dose: 0.5 mg Documented by: [id number] Levalbuterol HCl (Xopenex 1.25mg/0.5ml Neb) 1.25 mg INH NOW STA Stop: 10/18/18 21:45 Last Admin: 10/18/18 21:50 Dose: 1.25 mg Documented by: [id number] Levofloxacin (Levaquin) 750 mg PO DAILY@1100 NAVEEN; Protocol Stop: 10/25/18 10:59 Last Admin: 10/20/18 12:21 Dose: 750 mg Documented by: [id number] Admin: 10/19/18 11:08 Dose: 750 mg Documented by: [id number] Multivitamins (Multivitamin Tab) 1 tab PO DAILY NAVEEN Stop: 11/18/18 08:59 Last Admin: 10/20/18 09:35 Dose: 1 tab Documented by: [id number] Admin: 10/19/18 08:41 Dose: 1 tab Documented by: [id number] Potassium Chloride (Klor-Con M20) 40 meq PO NOW STA Stop: 10/18/18 21:34 Last Admin: 10/18/18 21:48 Dose: 40 meq Documented by: [id number] Medical Decision Making Medical Records Attestation: I reviewed the patient's medical records. Home Medications Current Medication List: was personally reviewed by me Laboratory Data Attestation: I reviewed the patient's lab results. Result diagrams: 10/20/18 07:48 10/20/18 07:48 Lab Results 10/18/18 10/18/18 10/18/18 Range/Units 18:51 19:37 19:37 WBC 5.32 (4.8-10.8) K/uL RBC 4.23 (4.2-5.4) M/uL Hgb 12.5 (12.0-16.0) g/dL Hct 36.5 L (37-47) % MCV 86.3 (80-100) fL MCH 29.6 (25-34) pg MCHC 34.2 (32-36) g/dL RDW Std Deviation 40.8 (36.4-46.3) fL RDW Coeff of Yu 12.8 (11.5-14.5) % Plt Count 174 (130-400) K/uL MPV 9.8 (7.4-10.4) fL Immature Gran % (Auto) 0.2 % Neut % (Auto) 73.1 % Lymph % (Auto) 15.2 % [place] % (Auto) 9.2 % Eos % (Auto) 2.1 % Baso % (Auto) 0.2 % Immature Gran # (Auto) 0.01 (0.00-0.02) K/uL Neut # (Auto) 3.89 (1.4-6.5) K/uL Lymph # (Auto) 0.81 L (1.2-3.4) K/uL [place] # (Auto) 0.49 (0.11-0.59) K/uL Eos # (Auto) 0.11 (0-0.5) K/uL Baso # (Auto) 0.01 (0-0.2) K/uL Sodium 137 (136-145) mmol/L Potassium 3.4 L (3.5-5.1) mmol/L Chloride 103 (98-107) mmol/L Carbon Dioxide 26 (21-32) mmol/L Anion Gap 8.0 (3-11) BUN 8 (7-18) mg/dl Creatinine 0.68 (0.6-1.2) mg/dl Est Cr Clr Drug Dosing 124.5 ml/min Est GFR ( Amer) 132.3 Est GFR (Non-Af Amer) 114.1 BUN/Creatinine Ratio 11.7 (10-20) Glucose 102 H (70-99) mg/dl Lactate (0.4-2.0) mmol/L Calcium 8.8 (8.5-10.1) mg/dl Magnesium 2.0 (1.8-2.4) mg/dl Total Bilirubin 0.3 (0.2-1) mg/dl AST 20 (15-37) U/L ALT 27 (12-78) U/L Alkaline Phosphatase 55 (45-117) U/L Total Protein 7.3 (6.4-8.2) gm/dl Albumin 3.3 L (3.4-5.0) gm/dl Globulin 4.0 (2.5-4.0) gm/dl Albumin/Globulin Ratio 0.8 L (0.9-2) TSH 1.180 (0.300-4.500) uIu/ml Urine Color Urine Appearance (Clear) Urine pH (4.5-7.5) Ur Specific [place] (1.000-1.030) Urine Protein (Negative) Urine Glucose (UA) (Negative) Urine Ketones (Negative) Urine Blood (Negative) Urine Nitrite (Negative) Urine Bilirubin (Negative) Urine Urobilinogen (Negative) Ur Leukocyte Esterase (Negative) Urine Test (Negative) Influenza Type A (PCR) Neg for Influ A (Neg) Influenza Type B (PCR) Neg for Influ B (Neg) 10/18/18 10/18/18 10/18/18 Range/Units 19:37 21:20 21:20 WBC (4.8-10.8) K/uL RBC (4.2-5.4) M/uL Hgb (12.0-16.0) g/dL Hct (37-47) % MCV (80-100) fL MCH (25-34) pg MCHC (32-36) g/dL RDW Std Deviation (36.4-46.3) fL RDW Coeff of Yu (11.5-14.5) % Plt Count (130-400) K/uL MPV (7.4-10.4) fL Immature Gran % (Auto) % Neut % (Auto) % Lymph % (Auto) % [place] % (Auto) % Eos % (Auto) % Baso % (Auto) % Immature Gran # (Auto) (0.00-0.02) K/uL Neut # (Auto) (1.4-6.5) K/uL Lymph # (Auto) (1.2-3.4) K/uL [place] # (Auto) (0.11-0.59) K/uL Eos # (Auto) (0-0.5) K/uL Baso # (Auto) (0-0.2) K/uL Sodium (136-145) mmol/L Potassium (3.5-5.1) mmol/L Chloride (98-107) mmol/L Carbon Dioxide (21-32) mmol/L Anion Gap (3-11) BUN (7-18) mg/dl Creatinine (0.6-1.2) mg/dl Est Cr Clr Drug Dosing ml/min Est GFR ( Amer) Est GFR (Non-Af Amer) BUN/Creatinine Ratio (10-20) Glucose (70-99) mg/dl Lactate 1.3 (0.4-2.0) mmol/L Calcium (8.5-10.1) mg/dl Magnesium (1.8-2.4) mg/dl Total Bilirubin (0.2-1) mg/dl AST (15-37) U/L ALT (12-78) U/L Alkaline Phosphatase (45-117) U/L Total Protein (6.4-8.2) gm/dl Albumin (3.4-5.0) gm/dl Globulin (2.5-4.0) gm/dl Albumin/Globulin Ratio (0.9-2) TSH (0.300-4.500) uIu/ml Urine Color Yellow Urine Appearance Clear (Clear) Urine pH 6.0 (4.5-7.5) Ur Specific [place] 1.013 (1.000-1.030) Urine Protein Negative (Negative) Urine Glucose (UA) Negative (Negative) Urine Ketones 1+ H (Negative) Urine Blood Negative (Negative) Urine Nitrite Negative (Negative) Urine Bilirubin Negative (Negative) Urine Urobilinogen Negative (Negative) Ur Leukocyte Esterase Negative (Negative) Urine Test Negative (Negative) Influenza Type A (PCR) (Neg) Influenza Type B (PCR) (Neg) Imaging Data Attestation: I personally reviewed and interpreted this imaging study as follows: Radiologist's Impression: CXR IMPRESSION: 1. Complete consolidation of the lingula with additional alveolar opacities of the basal left lower lobe. Findings are suggestive of multifocal pneumonia. Follow-up imaging to document resolution is needed. 2. Probable trace left pleural effusion. The above report was generated using voice recognition software. It may contain grammatical, syntax or spelling errors. Electronically signed by: Lobo Lane M.D. 10/18/2018 8:32 PM Dictated: 10/18/182029 Transcribed: 10/18/182029 MDM Narrative Differential diagnosis: Bronchitis, pneumonia, viral illness, asthma exacerbation, pneumothorax, among others This patient is a 33-year-old female presents to the emergency department with ongoing respiratory symptoms and fever. On exam, she was acutely ill in [facility]. She has been taking Augmentin with no improvement. Her chest x-ray confirms a fairly significant left-sided pneumonia. As the patient has failed outpatient therapy, I do not feel comfortable sending her home. The [facility] hospitalist kindly agreed to evaluate the patient for likely inpatient management. She was in agreement. Impression & Plan Pneumonia Discharge Plan Visit Data *Final* Discharge Date/Time: 10/18/18 22:55 Chief Complaint: Illness Stated Complaint: COUGH,FEVER ED Provider: Josue Torres ED Midlevel Provider: Anita Wynn Discharge Problem: Pneumonia Patient Disposition: Admitted As Inpatient Condition: Good Discharge Instructions Interventions: ED Discharge Assessment Last Done: 10/18/18 22:55
[2018-10-18 19:42] LABS: Influenza A virus by PCR Neg for Influ A (Neg); Influenza B virus by PCR Neg for Influ B (Neg)
[2018-10-18 20:05] LABS: Basophils # (auto) 0.01 K/uL (0-0.2); Basophils % (auto) 0.2 %; Eosinophils # (auto) 0.11 K/uL (0-0.5); Eosinophils % (auto) 2.1 %; Hematocrit (blood only) 36.5 % (37-47); Hemoglobin 12.5 g/dL (12.0-16.0); Immature Granulocytes # (auto) 0.01 K/uL (0.00-0.02); Immature Granulocytes % (auto) 0.2 %; Lymphocytes # (auto) 0.81 K/uL (1.2-3.4); Lymphocytes % (auto) 15.2 %; Mean Corpuscular Hgb Conc 34.2 g/dL (32-36); Mean Corpuscular Volume 86.3 fL (80-100); Mean Platelet Volume 9.8 fL (7.4-10.4); Monocytes # (auto) 0.49 K/uL (0.11-0.59); Monocytes % (auto) 9.2 %; Neutrophils # (auto) 3.89 K/uL (1.4-6.5); Neutrophils % (auto) 73.1 %; Platelet Count 174 K/uL (130-400); RDW Coefficient of Variation 12.8 % (11.5-14.5); RDW Standard Deviation 40.8 fL (36.4-46.3); Red Blood Count 4.23 M/uL (4.2-5.4); White Blood Count 5.32 K/uL (4.8-10.8)
[2018-10-18 20:12] LABS: Albumin Level 3.3 gm/dl (3.4-5.0); BUN Creatinine Ratio 11.7 (10-20); Calcium 8.8 mg/dl (8.5-10.1); Creatinine Clr Calc Pharmacy 124.5 ml/min; Est GFR (African American) 132.3; Est GFR (Non-African American) 114.1; Potassium 3.4 mmol/L (3.5-5.1)
[2018-10-18 20:15] LABS: Albumin Globulin Ratio 0.8 (0.9-2); Bilirubin,Total 0.3 mg/dl (0.2-1); Total Protein 7.3 gm/dl (6.4-8.2)
--- NOTE | 2018-10-18 20:33 | XRay Report ---
XR chest 2V routine HISTORY: 33 years-old Female cough persistant fever acute cough with congestion and fever COMPARISON: Chest radiographs 09/24/2008 TECHNIQUE: PA and lateral views of the chest FINDINGS: Cardiac silhouette appears normal. The right lung is clear. No pneumothorax. Suggested trace left ple ural effusion. Complete consolidation of the lingula with additional alveolar opacities of the basal left lower lobe. No overt pulmonary edema. Bones of the chest appear unremarkable. IMPRESSION: 1. Complete consolidation of the lingula with additional alveolar opacities of the basal left lower l obe. Findings are suggestive of multifocal pneumonia. Follow-up imaging to document resolution is nee ded. 2. Probable trace left pleural effusion. The above report was generated using voice recognition software. It may contain grammatical, syntax o r spelling errors. Electronically signed by: Lobo Lane M.D. 10/18/2018 8:32 PM
[2018-10-18] MEDS ORDERED: LEVOFLOXACIN/D5W 750 MG/150 ML BAG IV ONE (20:59)
[2018-10-18] MEDS ORDERED: cefTRIAXone SODIUM 2,000 MG/70 ML BAG IV STA (21:06)
[2018-10-18] MEDS ORDERED: POTASSIUM CHLORIDE 20 MEQ TABCR PO STA (21:33)
[2018-10-18] MEDS ORDERED: XOPENEX/ATROVENT 1.25mg/0.5MG NEB COMBO NEB STA (21:40)
[2018-10-18] MEDS ORDERED: IPRATROPIUM BROMIDE NEB SOLN 0.02% 2.5 ML VIAL INH STA (21:43)
[2018-10-18] MEDS ORDERED: LEVALBUTEROL 1.25MG/0.5ML NEB INH STA (21:44)
[2018-10-18 21:47] LABS: Pregnancy Test, Urine Negative (Negative)
--- NOTE | 2018-10-18 21:57 | History & Physical Report ---
Date of Service October 18, 2018 Assessment & Plan (1) Sepsis: Secondary to community acquired pneumonia Failed outpatient treatment Hypokalemia GMF Cultures. Levaquin Pulmonary consult if without improvement Pneumococcal vaccine prior to discharge Replace potassium DVT prophylaxis. Lovenox subcu Full code History of Present Illness Chief Complaint: Cough, fever Primary Care Provider: Patrick Burt DO History obtained from patient and records. No significant medical history. 1 week ago, patient developed body aches followed by productive croupy cough symptoms. Denies aspiration. Possible sick contacts. Patient seen at PCP's office 2 days ago. Prescribed Augmentin for possible bronchitis. Patient directed to the emergency room for worsening symptoms along with fever, shortness of breath. No chest pain. At the ER, patient received Levaquin and Ceftriaxone for sepsis. 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 Beliefs That Will Affect Care: None Current Living Situation: Family Other Information That Helps Us Care for You: No Feels Safe at Home: Yes Safety Concerns: Feels Safe At This Time Smoking Status: Never smoker Hx Alcohol Use: Yes Alcohol type: wine Hx Substance Use: No Review of Systems Review of Systems: As per HPI, all 10 systems reviewed, all other ROS negative Physical Exam Physical Exam: GENERAL: Comfortable, pleasant, obese, no respiratory distress SKIN: Normal color, warm HEENT: [place] palpebral conjunctivae, no ptosis, dry buccal mucosa under facial mask NECK : Supple, no tenderness CHEST : Decreased breath sounds, left, no tenderness HEART : RRR, no obvious murmurs ABDOMEN: Some distention, nontender EXTREMITIES : No LE swelling/tenderness, no other conspicuous deformities noted NEUROLOGIC : Coherent, no facial asymmetry, no other gross focality Results & Data Vital Signs (Past 12 Hours) Vital Signs Temp Pulse Pulse Resp BP Pulse Ox 10/18/18 21:51 86 16 97 10/18/18 20:49 37.4 C 10/18/18 19:30 107 H 30 H 120/92 97 10/18/18 19:10 109 H 29 H 121/67 96 10/18/18 19:00 104 H 19 93 10/18/18 18:38 98 H 18 98 10/18/18 18:30 84 16 99 10/18/18 18:20 127 H 19 96 10/18/18 17:59 39.2 C H 98 H 16 149/90 H 98 Laboratory Results Laboratory Results WBC 5.32 K/uL (4.8-10.8) 10/18/18 19:37 RBC 4.23 M/uL (4.2-5.4) 10/18/18 19:37 Hgb 12.5 g/dL (12.0-16.0) 10/18/18 19:37 Hct 36.5 % (37-47) L 10/18/18 19:37 MCV 86.3 fL (80-100) 10/18/18 19:37 MCH 29.6 pg (25-34) 10/18/18 19:37 MCHC 34.2 g/dL (32-36) 10/18/18 19:37 RDW Std Deviation 40.8 fL (36.4-46.3) 10/18/18 19:37 RDW Coeff of Uy 12.8 % (11.5-14.5) 10/18/18 19:37 Plt Count 174 K/uL (130-400) 10/18/18 19:37 MPV 9.8 fL (7.4-10.4) 10/18/18 19:37 Immature Gran % (Auto) 0.2 % 10/18/18 19:37 Neut % (Auto) 73.1 % 10/18/18 19:37 Lymph % (Auto) 15.2 % 10/18/18 19:37 [place] % (Auto) 9.2 % 10/18/18 19:37 Eos % (Auto) 2.1 % 10/18/18 19:37 Baso % (Auto) 0.2 % 10/18/18 19:37 Immature Gran # (Auto) 0.01 K/uL (0.00-0.02) 10/18/18 19:37 Neut # (Auto) 3.89 K/uL (1.4-6.5) 10/18/18 19:37 Lymph # (Auto) 0.81 K/uL (1.2-3.4) L 10/18/18 19:37 [place] # (Auto) 0.49 K/uL (0.11-0.59) 10/18/18 19:37 Eos # (Auto) 0.11 K/uL (0-0.5) 10/18/18 19:37 Baso # (Auto) 0.01 K/uL (0-0.2) 10/18/18 19:37 Sodium 137 mmol/L (136-145) 10/18/18 19:37 Potassium 3.4 mmol/L (3.5-5.1) L 10/18/18 19:37 Chloride 103 mmol/L (98-107) 10/18/18 19:37 Carbon Dioxide 26 mmol/L (21-32) 10/18/18 19:37 Anion Gap 8.0 (3-11) 10/18/18 19:37 BUN 8 mg/dl (7-18) 10/18/18 19:37 Creatinine 0.68 mg/dl (0.6-1.2) 10/18/18 19:37 Est Cr Clr Drug Dosing 124.5 ml/min 10/18/18 19:37 Est GFR ( Amer) 132.3 10/18/18 19:37 Est GFR (Non-Af Amer) 114.1 10/18/18 19:37 BUN/Creatinine Ratio 11.7 (10-20) 10/18/18 19:37 Glucose 102 mg/dl (70-99) H 10/18/18 19:37 Lactate 1.3 mmol/L (0.4-2.0) 10/18/18 19:37 Calcium 8.8 mg/dl (8.5-10.1) 10/18/18 19:37 Magnesium 2.0 mg/dl (1.8-2.4) 10/18/18 19:37 Total Bilirubin 0.3 mg/dl (0.2-1) 10/18/18 19:37 AST 20 U/L (15-37) 10/18/18 19:37 ALT 27 U/L (12-78) 10/18/18 19:37 Alkaline Phosphatase 55 U/L (45-117) 10/18/18 19:37 Total Protein 7.3 gm/dl (6.4-8.2) 10/18/18 19:37 Albumin 3.3 gm/dl (3.4-5.0) L 10/18/18 19:37 Globulin 4.0 gm/dl (2.5-4.0) 10/18/18 19:37 Albumin/Globulin Ratio 0.8 (0.9-2) L 10/18/18 19:37 Urine Test Negative (Negative) 10/18/18 21:20 Influenza Type A (PCR) Neg for Influ A (Neg) 10/18/18 18:51 Influenza Type B (PCR) Neg for Influ B (Neg) 10/18/18 18:51 Diagnostic Findings Chest x-ray showed 1. Complete consolidation of the lingula with additional alveolar opacities of the basal left lower lobe. Findings are suggestive of multifocal pneumonia. Follow-up imaging to document resolution is needed. 2. Probable trace left pleural effusion.
[2018-10-18 21:58] LABS: Appearance Urine Clear (Clear); Bilirubin Urine Negative (Negative); Blood Urine Negative (Negative); Color Urine Yellow; Glucose Urine UA Negative (Negative); Ketones Urine 1+ (Negative); Leukocyte Esterase Urine Negative (Negative); Nitrite Urine Negative (Negative); Protein Urine Negative (Negative); Specific Gravity Urine 1.013 (1.000-1.030); Urobilinogen Urine Negative (Negative)
[2018-10-18] MEDS ORDERED: XOPENEX/ATROVENT 1.25mg/0.5MG NEB COMBO NEB PRN (22:03)
[2018-10-18] MEDS ORDERED: LEVALBUTEROL 1.25MG/0.5ML NEB INH PRN (22:15)
[2018-10-18] MEDS ORDERED: IPRATROPIUM BROMIDE NEB SOLN 0.02% 2.5 ML VIAL INH PRN (22:15)
[2018-10-18] MEDS ORDERED: IBUPROFEN 200 MG TAB PO PRN (23:19)
[2018-10-18] MEDS ORDERED: LACTATED RINGER'S 1,000 ML IV ONE (23:19)
[2018-10-18] MEDS ORDERED: PROMETHAZINE HCL 12.5 MG in SODIUM CHLORIDE 0.9% 50 ML IV PRN (23:19)
[2018-10-18] MEDS ORDERED: PNEUMOCOCCAL ADMINISTRATION CHARGE ONE (23:19)
[2018-10-19] MEDS: guaiFENesin 600 MG TABCR PO SCH ×3 (01:02→20:13)
[2018-10-19] MEDS: ACETAMINOPHEN 325 MG TAB PO PRN ×3 (03:56→16:21)
[2018-10-19 05:16] LABS: Eosinophils # (auto) 0.09 K/uL (0-0.5); Eosinophils % (auto) 2.3 %; Hematocrit (blood only) 34.8 % (37-47); Immature Granulocytes # (auto) 0.01 K/uL (0.00-0.02); Immature Granulocytes % (auto) 0.3 %; Lymphocytes # (auto) 0.73 K/uL (1.2-3.4); Lymphocytes % (auto) 18.3 %; Mean Corpuscular Hgb Conc 34.5 g/dL (32-36); Mean Corpuscular Volume 85.9 fL (80-100); Mean Platelet Volume 10.2 fL (7.4-10.4); Monocytes # (auto) 0.54 K/uL (0.11-0.59); Monocytes % (auto) 13.5 %; Neutrophils # (auto) 2.62 K/uL (1.4-6.5); Neutrophils % (auto) 65.6 %; Platelet Count 172 K/uL (130-400); RDW Coefficient of Variation 12.9 % (11.5-14.5); RDW Standard Deviation 40.8 fL (36.4-46.3); Red Blood Count 4.05 M/uL (4.2-5.4); White Blood Count 3.99 K/uL (4.8-10.8)
[2018-10-19 05:33] LABS: INR 1.1 (0.9-1.1); Prothrombin Time 10.8 Seconds (9.0-12.0)
[2018-10-19] MEDS: MULTIVITAMIN TAB PO SCH (08:41)
[2018-10-19] MEDS: ENOXAPARIN INJ 40 MG/0.4 ML SYR SQ SCH (08:42)
[2018-10-19] MEDS ORDERED: LEVOFLOXACIN CONSULT ACTIVE PRN (09:00)
[2018-10-19] MEDS: levoFLOXacin 750 MG TAB PO SCH (11:08)
[2018-10-19] MEDS ORDERED: IBUPROFEN 600 MG TAB PO PRN (17:07)
[2018-10-19] MEDS ORDERED: ACETAMINOPHEN 325 MG TAB PO PRN (17:07)
[2018-10-19] MEDS ORDERED: PNEUMOCOCCAL POLYSACCHARIDES 25 MCG/0.5 ML VIAL/SYR IM ONE (21:59)
--- NOTE | 2018-10-20 00:25 | Hospitalist Progress Note ---
Date of Service October 20, 2018 Assessment & Plan (1) Sepsis: resuscitated (2) Pneumonia: Improved from admission but is still fevering. She prefers using Ibuprofen. Cont Levaquin. Ordered flutter valve to assist with expectoration. Cont Mucinex. (3) DVT prophylaxis: Lovenox/SCDs Full Code Dispo-continue hospitalization Lisaronni Elliott, DO [facility] Hosptalist Subjective Feels better today but she is still warm and fevering Nonsmoker ? sick contacts in the community recently. No requiring oxygen supplementation Denies any other symptoms, tolerating PO Review of Systems Review of Systems: All systems reviewed & are unremarkable except as noted in HPI & below Physical Exam Physical Exam: CONSTITUTIONAL: WNWD, vitals as above, generally well- appearing EYES: normal conjunctivae, no scleral icterus RESPIRATORY: crackles to left base, no rales or wheezes, normal respiratory effort CARDIOVASCULAR: regular rate and rhythm, S1 and 2 heard without murmurs, gallops or rubs, no JVD, no peripheral edema GASTROINTESTINAL: normal bowel sounds, soft, nontender, nondistended MUSCULOSKELETAL: strength 5/5 throughout, head is normocephalic and atraumatic SKIN: warm and dry NEUROLOGIC: CN 2-12 grossly intact, no gross focal deficits. PSYCHIATRIC: alert cooperative and oriented to person, place and time. Results & Data Vital Signs (Past 12 Hours) Vital Signs Temp Pulse Resp BP Pulse Ox 10/19/18 23:25 36.7 C 66 20 106/70 96 10/19/18 20:00 36.8 C 64 16 103/64 96 10/19/18 15:14 37.8 C H 96 H 20 134/82 96 Laboratory Results Short CBC 10/19/18 Range/Units 05:02 WBC 3.99 L (4.8-10.8) K/uL Hgb 12.0 (12.0-16.0) g/dL Hct 34.8 L (37-47) % Plt Count 172 (130-400) K/uL Medications Administered Current Inpatient Medications Acetaminophen (Tylenol) 650 mg PO Q4H PRN PRN Reason: Pain or Fever Stop: 11/17/18 23:18 Enoxaparin Sodium (Lovenox) 40 mg SQ QAM NAVEEN Stop: 11/18/18 08:59 Last Admin: 10/19/18 08:42 Dose: 40 mg Documented by: Guaifenesin (Mucinex) 600 mg PO Q12 NAVEEN Stop: 11/17/18 23:18 Last Admin: 10/19/18 20:13 Dose: 600 mg Documented by: Promethazine HCl 12.5 mg/ (Sodium Chloride) 50.5 mls @ 202 mls/hr IV Q6H PRN PRN Reason: Nausea And Vomiting Stop: 11/17/18 23:18 Ibuprofen (Motrin) 600 mg PO Q8H PRN PRN Reason: pain or fever or headache Stop: 11/17/18 23:18 Last Admin: 10/19/18 17:20 Dose: 600 mg Documented by: Ipratropium [place] (Atrovent 0.02% 0.5mg/2.5ml) 0.5 mg INH Q4H PRN PRN Reason: SOB OR WHEEZING Stop: 11/17/18 22:14 Levalbuterol HCl (Xopenex 1.25mg/0.5ml Neb) 1.25 mg INH Q4H PRN PRN Reason: SOB OR WHEEZING Stop: 11/17/18 22:14 Levofloxacin (Levaquin) 750 mg PO DAILY@1100 NAVEEN; Protocol Stop: 10/25/18 10:59 Last Admin: 10/19/18 11:08 Dose: 750 mg Documented by: Miscellaneous Information (Consult) 1 ea N/A UD PRN PRN Reason: Consult Stop: 11/18/18 08:59 Multivitamins (Multivitamin Tab) 1 tab PO DAILY [facility] Stop: 11/18/18 08:59 Last Admin: 10/19/18 08:41 Dose: 1 tab Documented by:
[2018-10-20 08:01] LABS: Basophils # (auto) 0.01 K/uL (0-0.2); Basophils % (auto) 0.3 %; Eosinophils # (auto) 0.14 K/uL (0-0.5); Eosinophils % (auto) 3.5 %; Hematocrit (blood only) 38.5 % (37-47); Hemoglobin 13.5 g/dL (12.0-16.0); Immature Granulocytes # (auto) 0.01 K/uL (0.00-0.02); Immature Granulocytes % (auto) 0.3 %; Lymphocytes # (auto) 0.87 K/uL (1.2-3.4); Mean Corpuscular Hgb Conc 35.1 g/dL (32-36); Mean Corpuscular Volume 86.3 fL (80-100); Mean Platelet Volume 10.2 fL (7.4-10.4); Monocytes # (auto) 0.45 K/uL (0.11-0.59); Monocytes % (auto) 11.4 %; Neutrophils # (auto) 2.47 K/uL (1.4-6.5); Neutrophils % (auto) 62.5 %; Platelet Count 208 K/uL (130-400); RDW Standard Deviation 41.5 fL (36.4-46.3); Red Blood Count 4.46 M/uL (4.2-5.4); White Blood Count 3.95 K/uL (4.8-10.8)
[2018-10-20 08:30] LABS: BUN Creatinine Ratio 7.5 (10-20); Calcium 8.7 mg/dl (8.5-10.1); Creatinine Clr Calc Pharmacy 138.3 ml/min; Est GFR (African American) 136.4; Est GFR (Non-African American) 117.6; Potassium 3.7 mmol/L (3.5-5.1)
[2018-10-20] MEDS: ENOXAPARIN INJ 40 MG/0.4 ML SYR SQ SCH (09:34)
[2018-10-20] MEDS: guaiFENesin 600 MG TABCR PO SCH (09:35)
[2018-10-20] MEDS: MULTIVITAMIN TAB PO SCH (09:35)
--- NOTE | 2018-10-20 12:09 | Discharge Summary ---
Date of Service October 20, 2018 Admission HPI Per Admitting Provider History obtained from patient and records. No significant medical history. 1 week ago, patient developed body aches followed by productive croupy cough symptoms. Denies aspiration. Possible sick contacts. Patient seen at PCP's office 2 days ago. Prescribed Augmentin for possible bronchitis. Patient directed to the emergency room for worsening symptoms along with fever, shortness of breath. No chest pain. At the ER, patient received Levaquin and Ceftriaxone for sepsis. Medical History as above Surgical History : Dental surgery, knee surgery, appendectomy Family History : Anxiety disorder, esophageal cancer Personal/Social history : Non-smoker, no EtOH intake, [employer] employee Admission Exam Per Admitting Provider GENERAL: Comfortable, pleasant, obese, no respiratory distress SKIN: Normal color, warm HEENT: [place] palpebral conjunctivae, no ptosis, dry buccal mucosa under facial mask NECK : Supple, no tenderness CHEST : Decreased breath sounds, left, no tenderness HEART : RRR, no obvious murmurs ABDOMEN: Some distention, nontender EXTREMITIES : No LE swelling/tenderness, no other conspicuous deformities noted NEUROLOGIC : Coherent, no facial asymmetry, no other gross focality Principal Diagnosis Community-acquired pneumonia Sepsis-resolved. Discharge Data Allergies Allergy/AdvReac Type Severity Reaction Status Date / Time No Known Allergies Allergy NONE Unverified 10/18/18 19:38 Consultations 10/18/18 21:07 ED Decision to Admit Stat Hospital Course (1) Sepsis: (2) Pneumonia: 33-year-old non-smoker presented to the ER with sepsis syndrome secondary to community acquired pneumonia. She had failed outpatient treatment with Augmentin for 3 days prior to arrival. She had become ill while on vacation in the [place], [place]. She reported a daughter and a friend who were also ill recently. On arrival she had a fever of approximately 103 Fahrenheit and was tachypneic. She was admitted to the hospitalist service and placed on Levaquin and Mucinex. Potassium was replaced. The following day she felt well but temperature went to 100.4 and she stayed in the hospital an additional day. At time of discharge a [id number] examination was performed revealing a hemodynamically stable and afebrile patient for greater than 24 hours who was tolerating p.o., mentating and ambulating at baseline and was stable for discharge. Close primary care follow-up was recommended and repeat chest x-ray to ensure resolution of pneumonia was also recommended. She received Pneumovax while admitted. Total Time Total Time Spent Total Time Spent (In Minutes): 60 Total Time Includes: Examination of the Patient, Discharge Planning, Medication Reconciliation, Communication With Other Providers and Other (arranged outpatient followup) Discharge Plan Discharge Items Patient Disposition: Home - Self-Care Reason For Visit: SEPSIS Discharge Diagnosis: Community-acquired pneumonia Sepsis-resolved. Condition: Good Discharge Goals: Improve disease control Activity: Resume your previous activity Non-emergency contact: Primary Care Provider Call non-emergency contact if: you have any medication questions, your symptoms worsen, your pain is not controlled, your pain is worsening, your pain is unusual for you, your pain is concerning for you and you have a fever Follow-up/Referrals: Patrick Burt DO [Primary Care Provider] - Diet: Regular Addtl Provider Instructions: Please take all medications as instructed on discharge list below. You have the following appointment: 10/25/2018 11:20 AM Patrick Burt DO [facility] It is recommended to have a repeat chest xray in 4 weeks time to ensure complete resolution of your pneumonia. It was a pleasure taking care of you! Please call if you have any questions or problems. You can reach a [facility] hospitalist on duty at [facility] 24 hours a day by calling [phone]. Take care of yourself. [facility] Prescriptions: New levofloxacin 750 mg Tablet 750 mg PO DAILY@1100 5 Days Qty: 5 RF: 0 Continued multivitamin Tablet 1 tab PO DAILY RF: 0 Stand-Alone Forms: Work/School Release (ED), My [facility] Discharge Orders: Discharge Order (Routine); Ordered 10/20/18 Ordered By: Lisa Elliott Admission Data Admit Date/Time: 10/18/18 21:58 Attending Provider: Lisa Elliott Admit Provider: Lopez Emmanuel Primary Care Provider: Patrick Burt Other Providers: Lopez Emmanuel Service: Medical
[2018-10-20] MEDS: levoFLOXacin 750 MG TAB PO SCH (12:21)
== END 2018-10-20 13:55 | disposition home or self-care (01) | DRG 871 ==
LOC: ED 17:48 → 4W 21:58